=== PATIENT | male | born 1995 | race Caucasian/White ===

== ENCOUNTER 2024-06-17 12:50 | Emergency (ER) | payer SELFPAY ==
[~2024-06-17] VITALS: Ht 180.3 cm; Wt 66.8 kg
[2024-06-17 20:47] VITALS: BP 109/59; TEMP 97.3; O2SAT 97
== END 2024-06-17 20:50 | disposition home or self-care (01) ==
LOC: M ED 12:50
DX: H53.142 Visual discomfort, left eye (principal)

== ENCOUNTER 2024-10-06 12:48 | Emergency (ER) | payer BC ==
[~2024-10-06] VITALS: Ht 180.3 cm; Wt 67.5 kg
[2024-10-06] MEDS: NS (Normal Saline) 0.9% 1,000 ML IV ONE (13:19)
[2024-10-06 13:28] LABS: BASO # 0.1 10^3/uL (0.0-0.2); BASO % 0.4 % (0.0-1.0); EOS # 0.2 10^3/uL (0.0-0.5); EOS % 1.6 % (0.0-3.0); LYMPH # 4.6 10^3/uL (1.5-5.0); LYMPH % 41.1 % (24.0-44.0); MONO # 0.8 10^3/uL (0.0-0.8); MONO % 6.9 % (2.0-8.0); NEUTROPHILS # 5.6 10^3/uL (1.5-8.5); NEUTROPHILS % 49.8 % (36.0-66.0); PLATELET COUNT, AUTOMATED 229 10^3/uL (150-450)
[2024-10-06 14:00] LABS: CALCIUM LEVEL 9.0 MG/DL (8.5-10.1); CARBON DIOXIDE LEVEL 26 MMOL/L (20-31); CHLORIDE LEVEL 105 MMOL/L (98-107); CREATININE FOR GFR 0.94 MG/DL (0.70-1.30); GLOMERULAR FILTRATION RATE > 90.0 (>60); POTASSIUM SERUM 3.6 MMOL/L (3.5-5.1); SODIUM LEVEL 142 MMOL/L (136-145)
[2024-10-06 14:45] VITALS: BP 115/70; TEMP 97.2; O2SAT 98
== END 2024-10-06 15:02 | disposition home or self-care (01) ==
LOC: M ED 12:48
DX: R55 Syncope and collapse (principal); Z13.0 Encounter for screening for diseases of the blood and blood-forming organs and certain disorders involving the immune mechanism; H53.2 Diplopia

== ENCOUNTER → 2024-10-06 | Outpatient (CLI) | payer BC ==
[2024-10-06 14:55] LABS: ALT/SGPT 27 U/L (7.0-40); AST/SGOT 25 U/L (<34); C REACTIVE PROTEIN QUANTITATIV < 0.50 MG/DL (<1.0); CALCIUM LEVEL 8.9 MG/DL (8.5-10.1); CARBON DIOXIDE LEVEL 28 MMOL/L (20-31); CHLORIDE LEVEL 105 MMOL/L (98-107); CREATININE FOR GFR 0.89 MG/DL (0.70-1.30); GLOMERULAR FILTRATION RATE > 90.0 (>60); POTASSIUM SERUM 3.8 MMOL/L (3.5-5.1); SODIUM LEVEL 143 MMOL/L (136-145)
[2024-10-06 14:57] LABS: FREE T4 1.23 NG/DL (0.89-1.76)
[2024-10-10 15:33] LABS: ANGIOTENSIN 1 CONVERTING ENZYM 25 U/L (9-67)
== END ==
LOC: M LAB 12:02
PROVIDERS: ATTEND Ophthalmology
DX: Z13.0 Encounter for screening for diseases of the blood and blood-forming organs and certain disorders involving the immune mechanism (principal); H53.2 Diplopia

== ENCOUNTER → 2024-11-14 | Outpatient (CLI) | payer BC ==
[~2024-11-14] MED LIST: PROHANCE 279.3MG/ML 15ML VIAL ONE
== END ==
LOC: M PLAIMG 10:01
PROVIDERS: ATTEND Ophthalmology
DX: H53.2 Diplopia (principal)

== ENCOUNTER → 2024-11-16 | Outpatient (REF) | payer BC ==
[2024-11-16 12:58] LABS: CHOLESTEROL LEVEL 166.0 MG/DL (<200); CHOLESTEROL RISK RATIO 2.69 (<5); LDL CHOLESTEROL 80.5 MG/DL (<100); NON-HDL-C 104.5 MG/DL; TRIGLYCERIDES LEVEL 120.0 MG/DL (<150)
[2024-11-16 13:36] LABS: ESTIMATED AVERAGE GLUCOSE 100.0 MG/DL (60-110)
== END ==
LOC: M LAB REF 12:14
PROVIDERS: ATTEND Student in an Organized Health Care Education/Training Program
DX: Z13.9 Encounter for screening, unspecified (principal); Z68.20 Body mass index [BMI] 20.0-20.9, adult

== ENCOUNTER 2024-12-20 15:23 | Outpatient (CLI) | payer BC ==
[~2024-12-20] VITALS: Ht 180.3 cm; Wt 68.2 kg
[2024-12-20 15:38] VITALS: BP 117/70; O2SAT 97
[2024-12-20] MEDS: methylPREDNISolone 1,000 MG, VIAL MATE ADAPTER 1 EACH in NS 100 ML IV ONE (15:41)
[2024-12-20 16:46] VITALS: BP 109/63; O2SAT 98
== END 2024-12-20 16:46 ==
LOC: M INFU 15:23
PROVIDERS: ATTEND Psychiatry & Neurology Neurology
DX: G35.D Multiple sclerosis, unspecified (principal)
CPT/HCPCS: 96365; J2919

== ENCOUNTER 2024-12-21 15:30 | Outpatient (CLI) | payer BC ==
[~2024-12-21] VITALS: Ht 185.4 cm; Wt 68.0 kg
[2024-12-21 15:20] VITALS: BP 123/72; O2SAT 99
[2024-12-21] MEDS: methylPREDNISolone 1,000 MG, VIAL MATE ADAPTER 1 EACH in NS 100 ML IV ONE (15:45)
[2024-12-21 16:46] VITALS: BP 119/65; O2SAT 98
== END 2024-12-21 16:55 | disposition home or self-care (01) ==
LOC: M INFU 15:30
PROVIDERS: ATTEND Psychiatry & Neurology Neurology
DX: G35.D Multiple sclerosis, unspecified (principal)
CPT/HCPCS: 96365; J2919

== ENCOUNTER 2024-12-22 15:01 | Outpatient (CLI) | payer BC ==
[~2024-12-22] VITALS: Ht 185.4 cm; Wt 68.0 kg
[2024-12-22 15:25] VITALS: BP 140/61; O2SAT 98
[2024-12-22] MEDS: methylPREDNISolone 1,000 MG, VIAL MATE ADAPTER 1 EACH in NS 100 ML IV ONE (15:40)
[2024-12-22 16:45] VITALS: BP 101/60; O2SAT 99
== END 2024-12-22 16:45 ==
LOC: M INFU 15:01
PROVIDERS: ATTEND Psychiatry & Neurology Neurology
DX: G35.D Multiple sclerosis, unspecified (principal)
CPT/HCPCS: 96365; J2919

== ENCOUNTER 2024-12-23 15:36 | Outpatient (CLI) | payer BC ==
[~2024-12-23] VITALS: Ht 185.4 cm; Wt 68.0 kg
[2024-12-23 15:45] VITALS: BP 117/74; O2SAT 98
[2024-12-23] MEDS: methylPREDNISolone 1,000 MG, VIAL MATE ADAPTER 1 EACH in NS 100 ML IV ONE (15:49)
[2024-12-23 16:50] VITALS: BP 114/66; O2SAT 98
== END 2024-12-23 16:50 ==
LOC: M INFU 15:36
PROVIDERS: ATTEND Psychiatry & Neurology Neurology
DX: G35.D Multiple sclerosis, unspecified (principal)
CPT/HCPCS: 96365; J2919